=== PATIENT | female | born 1990 | race Caucasian/White ===

== ENCOUNTER → 2016-12-14 | Outpatient (CLI) | payer BC ==
--- NOTE | 2016-12-14 22:20 | US ---
EXAMINATION TYPE: US pelvic complete DATE OF EXAM: 12/14/2016 4:24 PM COMPARISON: Prior pelvic ultrasound September 26, 2016 CLINICAL HISTORY: N91.2 AMENORRHEA. No cycles since August or September, no reason to not have cycles TECHNIQUE: Transabdominal (TA) pelvic ultrasound Date of LMP: Aug 2016 EXAM MEASUREMENTS: Uterus: 8.5 x 3.4 x 5.0 cm Endometrial Stripe: 0.7 cm Right Ovary: 3.7 x 1.6 x 3.8 cm Left Ovary: 3.2 x 1.6 x 2.8 cm TECHNOLOGIST IMPRESSION: wnl 1. Uterus: Anteverted wnl 2. Endometrium: measures 0.7 cm 3. Right Ovary: wnl 4. Left Ovary: wnl 5. Bilateral Adnexa: wnl 6. Posterior cul-de-sac: no free fluid IMPRESSION: Unremarkable study, no significant change from prior study is seen.
== END | disposition home or self-care (01) ==
LOC: RADUSWWP 16:08
PROVIDERS: ATTEND Obstetrics & Gynecology
DX: N91.2 Amenorrhea, unspecified (principal)
CPT/HCPCS: 76856

== ENCOUNTER → 2020-09-14 | Outpatient (CLI) | payer BC ==
--- NOTE | 2020-09-14 11:24 | FL ---
EXAMINATION TYPE: FL barium swallow w video DATE OF EXAM: 09/14/2020 MODIFIED SWALLOW / DEGLUTITION STUDY CLINICAL HISTORY: Dysphagia. TECHNIQUE: Deglutition study is performed utilizing thin liquid barium, honey and nectar thick liqui d barium, barium thick applesauce, and barium coated cracker. A total of 83 seconds of fluoroscopic t arsen. 0 spot images saved to PACS. COMPARISON: None. FINDINGS: The oral and pharyngeal phases show satisfactory initiation and propagation with all modali ties tested. Normal mastication is seen with solid modalities tested. There is no evidence of penet ration or aspiration with any modality tested. No significant pharyngeal residue was appreciated. In cidental note is made of reversal of normal cervical curvature. IMPRESSION: Normal deglutition study. Please refer to speech therapist notes for further details if necessary.
== END | disposition home or self-care (01) ==
LOC: RADFLMAIN 10:42
PROVIDERS: ATTEND Otolaryngology
DX: R13.10 Dysphagia, unspecified (principal)
CPT/HCPCS: 74230

== ENCOUNTER 2023-10-24 12:50 | Emergency (ER) | payer BC ==
--- NOTE | 2023-10-24 13:54 | XR ---
EXAMINATION TYPE: XR chest 1V portable DATE OF EXAM: 10/24/2023 Comparison: None. Clinical History: 33-year-old female feels like chicken stuck in esophagus since yesterday, FB Findings: Slight levoconvex curvature centered along the lower thoracic spine. Heart normal size. Aorta and pul monary vasculature are within normal limits. No consolidation or pleural effusion is seen. No radiopa que foreign body identified. Impression: Slight levoconvex curvature/scoliosis lower thoracic spine. No acute cardiopulmonary process. No jace ined radiopaque foreign body identified.
--- NOTE | 2023-10-24 14:17 | ED ---
ENT HPI - General Chief complaint: Recheck/Abnormal Lab/Rx Stated complaint: poss Food Stuck Time Seen by Provider: 10/24/23 13:13 Source: patient, RN notes reviewed, old records reviewed Mode of arrival: ambulatory Limitations: no limitations - History of Present Illness Initial comments: This is a 33-year-old female to the emergency department for evaluation of esophageal foreign body. Patient states she cannot tolerate secretions and is unable to drink. Patient has no pain no shortness of breath MD complaint: sore throat (Patient does appear to have foreign body in throat unable to eat or drink) -: hour(s) (12) Location: throat Severity: severe Severity scale (1-10): 10 Consistency: constant Improves with: none Worsens with: swallowing - Related Data Allergies Allergy/AdvReac Type Severity Reaction Status Date / Time amoxicillin [From Augmentin] Allergy Rash/Hives Verified 10/24/23 12:58 clavulanic acid Allergy Rash/Hives Verified 10/24/23 12:58 [From Augmentin] Review of Systems ROS Statement: Those systems with pertinent positive or pertinent negative responses have been documented in the HPI. ROS Other: All systems not noted in ROS Statement are negative. Past Medical History Past Medical History: No Reported History History of Any Multi-Drug Resistant Organisms: None Reported Additional Past Surgical History / Comment(s): Breast Past Psychological History: No Psychological Hx Reported Smoking Status: Never smoker Past Alcohol Use History: None Reported Past Drug Use History: None Reported General Exam - General Exam Comments Initial Comments: Patient is unable to tolerate her own secretions and whenever she does drink any liquids. Limitations: no limitations General appearance: alert, in no apparent distress Head exam: Present: atraumatic, normocephalic, normal inspection Eye exam: Present: normal appearance, PERRL, EOMI. Absent: scleral icterus, conjunctival injection, periorbital swelling ENT exam: Present: normal exam, mucous membranes moist Neck exam: Present: normal inspection. Absent: tenderness, meningismus, lymphadenopathy Respiratory exam: Present: normal lung sounds bilaterally. Absent: respiratory distress, wheezes, rales, rhonchi, stridor Cardiovascular Exam: Present: regular rate, normal rhythm, normal heart sounds. Absent: systolic murmur, diastolic murmur, rubs, gallop, clicks GI/Abdominal exam: Present: soft, normal bowel sounds. Absent: distended, tenderness, guarding, rebound, rigid Extremities exam: Present: normal inspection, full ROM, normal capillary refill. Absent: tenderness, pedal edema, joint swelling, calf tenderness Back exam: Present: normal inspection Neurological exam: Present: alert, oriented X3, CN II-XII intact Psychiatric exam: Present: normal affect, normal mood Skin exam: Present: warm, dry, intact, normal color. Absent: rash Course Vital Signs 10/24/23 10/24/23 10/24/23 12:55 14:45 15:11 Temperature 98.1 F 98.1 F Pulse Rate 85 65 67 Respiratory 20 18 18 Rate Blood Pressure 155/104 136/94 156/92 O2 Sat by Pulse 99 100 Oximetry 10/24/23 10/24/23 16:42 18:20 Temperature 97.9 F 97.8 F Pulse Rate 67 73 Respiratory 18 18 Rate Blood Pressure 133/95 133/99 O2 Sat by Pulse 97 100 Oximetry - Reevaluation(s) Reevaluation #1: Medical records reviewed Reevaluation #2: Patient symptoms are improved here in the ER, GI did see patient were unable and were able to eat treated foreign body Reevaluation #3: Patient informed results questions answered and okay for discharge Reevaluation #4: Was pt. sent in by a medical professional or institution (Dr. PA, ARTIST WOODBLOCK, urgent care, hospital, or snf...) When possible be specific @ -no Did you speak to anyone other than the patient for history (EMS, parent, family, police, friend...)? What history was obtained from this source @ -no Did you review nursing and triage notes (agree or disagree)? Why? @ -agree Are old charts reviewed (outside hosp., previous admission, EMS record, old EKG, old radiological studies, urgent care reports/EKG's, snf records)? Report findings @ -yes Differential Diagnosis (chest pain, altered mental status, abdominal pain women, abdominal pain men, vaginal bleeding, weakness, fever, dyspnea, syncope, he adache, dizziness, GI bleed, back pain, seizure, CVA, palpatations, mental health, musculoskeletal)? @ -prior EKG interpreted by me (3pts min.). @ -no X-rays interpreted by me (1pt min.). @ -yes negative for acute disease CT interpreted by me (1pt min.). @ -no U/S interpreted by me (1pt. min.). @ -no What testing was considered but not performed or refused? (CT, X-rays, U/S, labs)? Why? @ -none What meds were considered but not given or refused? Why? @ -none Did you discuss the management of the patient with other professionals (professionals i.e. , PA, ARTIST WOODBLOCK, lab, RT, psych nurse, psychologist social, theatre professor, teacher, contracts officer, showcase trimmer)? Give summary @ -yes GI did see patient in the ER were able to remove foreign body Was smoking cessation discussed for >3mins.? @ -no Was critical care preformed (if so, how long)? @ -no Were there social determinants of health that impacted care today? How? (Homelessness, low income, unemployed, alcoholism, drug addiction, transportati on, low edu. Level, literacy, decrease access to med. care, intermediate, rehab)? @ -none Was there de-escalation of care discussed even if they declined (Discuss DNR or withdrawal of care, Hospice)? DNR status @ -no What co-morbidities impacted this encounter? (DM, HTN, Smoking, COPD, CAD, Cancer, CVA, ARF, Chemo, Hep., AIDS, mental health diagnosis, sleep apnea, morbid obesity)? @ -none Was patient admitted / discharged? Hospital course, mention meds given and route, prescriptions, significant lab abnormalities, going to OR and other pertinent info. @ - Undiagnosed new problem with uncertain prognosis? @ -no Drug Therapy requiring intensive monitoring for toxicity (Heparin, Nitro, Insulin, Cardizem)? @ -no Were any procedures done? @ -no Diagnosis/symptom? @ -Esophageal foreign body Acute, or Chronic, or Acute on Chronic? @ -Acute Uncomplicated (without systemic symptoms) or Complicated (systemic symptoms)? @ -Complicated Side effects of treatment? @ -no Exacerbation, Progression, or Severe Exacerbation? @ -exacerbation Poses a threat to life or bodily function? How? (Chest pain, USA, VT, pneumonia, PE, COPD, DKA, ARF, appy, cholecystitis, CVA, Diverticulitis, Homicidal, Michelle cidal, threat to staff... and all critical care pts) @ -yes with impending airway - Consultations Consultation #1: Spoke with GI surgery Dr. Ornelas will see patient in the emergency department Medical Decision Making - Medical Decision Making 33 female to the emergency department for evaluation with a patient's symptoms are improved here daily drinking can be discharged home on clear liquid diet - Lab Data Lab Results 10/24/23 Range/Units 17:04 Urine HCG, Qual Not Detected (Not Detectd) - Radiology Data Radiology results: report reviewed (Chest x-rays negative for acute disease), image reviewed Disposition Clinical Impression: Esophageal foreign body Disposition: HOME SELF-CARE Condition: Good Instructions (If sedation given, give patient instructions): Esophageal Foreign Body (ED) Is patient prescribed a controlled substance at d/c from ED?: No Referrals: Stephanie Page MD [Primary Care Provider] - 1-2 days Time of Disposition: 17:45
[2023-10-24] MEDS ORDERED: GLUCAGON 1 MG/ML VIAL IVP STA (14:32)
[2023-10-24] MEDS ORDERED: NITROGLYCERIN SL TABS 0.4 MG TAB SUBLINGUAL STA (14:32)
[2023-10-24] MEDS ORDERED: SODIUM CHLORIDE 0.9% 500 ML 500 ML IV STA (14:32)
[2023-10-24 14:54] VITALS: RESP 18
[2023-10-24] MEDS ORDERED: SODIUM CHLORIDE 0.9% 500 ML 500 ML IV ONE (17:20)
[2023-10-24] MEDS ORDERED: PROPOFOL 10 MG/ML 20 ML VIAL IV ONE (17:23)
[2023-10-24 18:49] VITALS: BP 133/99; PULSE 73; TEMP 97.8
--- NOTE | 2023-10-25 00:50 | OP ---
OPERATIVE REPORT DATE OF SERVICE : 10/24/2023 REQUESTING PHYSICIAN: Stephanie Page. BRIEF HISTORY: The patient is a 33-year-old pleasant white female who came to the emergency room with acute food impaction. She was eating a piece of chicken last night and could not swallow any further. She stayed home all night and this morning and as she continued to have dysphagia, not able to swallow any liquids, came to the emergency room and scheduled for an upper endoscopy for foreign body removal. She has been having intermittent dysphagia to solids for the last one year duration. This usually happens once or twice a week but spontaneously resolves. She denies any heartburn. PROCEDURE PERFORMED: EGD with foreign body removal and biopsy. PREOPERATIVE DIAGNOSIS: Acute food impaction. ANESTHESIA: IV sedation per Anesthesia. DESCRIPTION OF PROCEDURE: After informed consent was obtained from the patient, the procedure was performed in the emergency room. The Olympus CF190 video endoscope was inserted into the mouth, the esophagus intubated without any difficulty and was gradually advanced into the mid esophagus. There was a large piece of meat that was impacted in the mid esophagus. Using a snare, I was able to remove this piece of meat along with the scope. Following the food bolus removal, the scope was advanced through the mouth, and esophagus reintubated without any difficulty and was gradually advanced into the distal esophagus. There were multiple mucosal superficial rings identified involving the mid and distal esophagus, esophageal stricture at the GE junction and with gentle manipulation I was able to advance the scope with mild pressure into the stomach and duodenum. Bulb and the second part of the duodenum appeared normal. The scope at this time was withdrawn to the stomach adequately, insufflated with air and upon careful examination of the antrum, body, cardia and fundus appeared normal. Scope was done withdrawn out of the esophagus. The GE junction was located at 9 cm from the incisors. There were multiple circumferential mucosal rings noted in the mid and distal esophagus with a stricture at the GE junction. There was thickened esophageal folds involving the mid and distal esophagus suspicious for eosinophilic esophagitis. Multiple biopsies were done from the mid and distal esophagus, proximal cervical esophagus appeared normal and the patient tolerated the procedure well. IMPRESSION: 1. Impacted food bolus in the distal esophagus, status post removal as described above. 2. Multiple superficial mucosal rings with thickened esophageal folds and distal esophageal stricture, status post multiple biopsies to evaluate for eosinophilic esophagitis. RECOMMENDATIONS: Findings of this examination were discussed with the patient as well as her family, at this time will await biopsy results. She will be on clear liquids today and soft diet tomorrow. Follow up in office in 1-2 weeks to discuss biopsy results and for further management. MMODL / IJN: [id number] /
== END 2023-10-24 18:20 | disposition home or self-care (01) ==
LOC: EC 12:50
DX: T18.108A Unspecified foreign body in esophagus causing other injury, initial encounter (principal); D72.10 Eosinophilia, unspecified; K20.90 Esophagitis, unspecified without bleeding; K22.2 Esophageal obstruction; Z88.0 Allergy status to penicillin; Z88.1 Allergy status to other antibiotic agents
CPT/HCPCS: 88305; 88312; 81025; 71045; 43239; 43247; 99284; 96374; 96361; J1610; J2704